=== PATIENT | female | born 1960 | race African-American/Black ===

== ENCOUNTER 2017-10-07 05:49 | Inpatient (IN) | payer MEDICAID ==
[~2017-10-07] VITALS: Ht 170.2 cm; Wt 68.9 kg
[2017-10-07] MEDS ORDERED: SODIUM CHLORIDE 0.9% 1000ML BAG (SEPSIS BOLUS) IV ONE (06:15)
[2017-10-07 08:22] LABS: BASOPHILS % 0.2 % (0.0-2.0); EOSINOPHILS % 2.6 % (0.0-5.0); HEMATOCRIT. 29.7 % (36.0-48.0); HEMOGLOBIN. 9.5 g/dL (12.0-16.0); LYMPHOCYTES % 11.5 % (20.0-50.0); MEAN CORPUSCULAR HEMOGLOBIN 27.3 pg (28.0-32.0); MEAN CORPUSCULAR VOLUME 85.1 fL (81.0-99.0); MEAN PLATELET VOLUME 9.7 fl (7.4-10.4); MONOCYTES % 7.8 % (2.0-8.0); NEUTROPHILS % 77.9 % (40.0-76.0); PLATELET 153 x1000/uL (130-400); RED BLOOD CELL COUNT 3.49 mill/uL (4.2-5.4); RED CELL DISTRIBUTION WIDTH 15.5 % (11.6-14.6)
[2017-10-07] MEDS ORDERED: PIPERACILLIN/TAZOBACTAM 3.375GM/50ML PREMIX IV ONE (09:15)
[2017-10-07] MEDS ORDERED: CEFTRIAXONE 1 G PREMIX 50 ML IV ONE (09:15)
[2017-10-07] MEDS ORDERED: VANCOMYCIN 1 G PREMIX 200 ML IV SCH (09:15)
[2017-10-07 09:25] LABS: CLARITY URINE CLEAR (CLEAR); COLOR URINE YELLOW (YELLOW); KETONES URINE NEGATIVE (NEGATIVE); LEUKOCYTE ESTERASE URINE NEGATIVE (NEGATIVE); NITRITE URINE NEGATIVE (NEGATIVE); OCCULT BLOOD URINE NEGATIVE (NEGATIVE); PH URINE 5.5 (4.5-8.0); PROTEIN URINE NEGATIVE (NEGATIVE); SPECIFIC GRAVITY URINE 1.015 (1.005-1.030)
[2017-10-07] MEDS ORDERED: PIPERACILLIN/TAZ 3.375G PREMIX 50 ML IV SCH ×3 (09:30→18:00)
[2017-10-07] MEDS ORDERED: LIDOCAINE HCL 1% 20ML VIAL (Pyxis) INJ ONE (09:47)
[2017-10-07 10:05] LABS: BG BASE EXCESS 2.8 mmol/L (-2.0-2.0); BG CARBOXYHEMOGLOBIN 0.3 % (0.5-1.5); BG DEOXYHEMOGLOBIN 2.9 % (0.0-5.0); BG FRACTION INSPIRED OXYGEN 30; BG HCO3 ACT 27.2 mmol/L (22.0-26.0); BG METHEMOGLOBIN 0.1 % (0.0-1.5); BG OXYGEN SATURATION 97.1 % (92.0-98.5); BG OXYHEMOGLOBIN 96.7 % (94.0-97.0); BG SAMPLE SITE RIGHT RADIAL; BG TIDAL VOLUME(mL) 450 mL; BG TOTAL HEMOGLOBIN 9.8 g/dL (12.0-18.0); BG VENT MODE VENT - A/C; BG VENT RATE 12 set
[2017-10-07 11:38] LABS: CHLORIDE 106 mEq/L (98-107)
[2017-10-07 11:39] LABS: INR 1.1; PROTHROMBIN TIME 11.1 sec (9.4-11.6)
[2017-10-07 12:00] VITALS: BP 110/72
[2017-10-07] MEDS: IPRATROPIUM/ALBUTEROL 0.5-3(2.5)MG/3ML NEB HHN SCH ×2 (12:41→20:48)
[2017-10-07] MEDS ORDERED: FAMO-135 GT (12:41)
[2017-10-07] MEDS ORDERED: DOCU-150 GT (12:41)
[2017-10-07] MEDS ORDERED: LISI-604 GT (12:41)
[2017-10-07] MEDS ORDERED: MULT9LIQ6 GT (12:41)
[2017-10-07] MEDS ORDERED: MAGN400T29 GT (12:41)
[2017-10-07] MEDS ORDERED: ACET-2853 GT (12:50)
[2017-10-07] MEDS ORDERED: MOM GT (12:50)
[2017-10-07] MEDS ORDERED: BISA10SU62 RC (12:50)
[2017-10-07 14:00] VITALS: BP 119/90
[2017-10-07 16:00] VITALS: BP 105/78
[2017-10-07] MEDS ORDERED: ENOXAPARIN 80MG/0.8ML SYR SUBCUT SCH (17:00)
[2017-10-07] MEDS: DEXTROSE 50% WATER 50ML SYRINGE IV PRN ×2 (17:36→22:27)
[2017-10-07] MEDS: BLOOD SUGAR DIAGNOSTIC STRIP TEST SCH ×2 (17:36→21:00)
[2017-10-07] MEDS: INSULIN LISPRO 100 UNITS/ML SUBCUT SCH ×2 (17:37→21:00)
[2017-10-07 18:00] VITALS: BP 113/77
[2017-10-07] MEDS ORDERED: VANCOMYCIN 1500MG in DEXTROSE 5% WATER 250ML IV NR (18:00)
[2017-10-07 20:00] VITALS: BP 127/82
[2017-10-07] MEDS: LISINOPRIL 20MG TABLET PO SCH (20:08)
[2017-10-07] MEDS: FAMOTIDINE 20MG TABLET PO SCH (20:08)
[2017-10-07] MEDS: ACETYLCYSTEINE 100MG/ML 10% VIAL 4ML INH SCH (20:48)
[2017-10-07 22:00] VITALS: BP 119/76
[2017-10-08] VITALS (12 sets, daily range): BP systolic 80–128; BP diastolic 25–88
[2017-10-08] MEDS: VANCOMYCIN 750 MG PREMIX 150 ML IV SCH ×3 (01:57→17:01)
[2017-10-08] MEDS: IPRATROPIUM/ALBUTEROL 0.5-3(2.5)MG/3ML NEB HHN SCH ×4 (02:19→20:00)
[2017-10-08 06:40] LABS: BASOPHILS % 0.3 % (0.0-2.0); EOSINOPHILS % 2.2 % (0.0-5.0); HEMATOCRIT. 32.7 % (36.0-48.0); HEMOGLOBIN. 10.6 g/dL (12.0-16.0); LYMPHOCYTES % 8.5 % (20.0-50.0); MEAN CORPUSCULAR HEMOGLOBIN 27.2 pg (28.0-32.0); MEAN CORPUSCULAR VOLUME 83.7 fL (81.0-99.0); MEAN PLATELET VOLUME 10.1 fl (7.4-10.4); MONOCYTES % 6.3 % (2.0-8.0); NEUTROPHILS % 82.7 % (40.0-76.0); PLATELET 206 x1000/uL (130-400); RED BLOOD CELL COUNT 3.91 mill/uL (4.2-5.4); RED CELL DISTRIBUTION WIDTH 15.8 % (11.6-14.6)
[2017-10-08 07:06] LABS: CHLORIDE 103 mEq/L (98-107)
[2017-10-08] MEDS: ACETYLCYSTEINE 100MG/ML 10% VIAL 4ML INH SCH ×2 (08:12→13:55)
[2017-10-08] MEDS: LISINOPRIL 20MG TABLET PO SCH (08:31)
[2017-10-08] MEDS: ENOXAPARIN 40MG/0.4ML SYR SUBCUT SCH (08:32)
[2017-10-08] MEDS: DILTIAZEM HCL 30MG TABLET PO SCH ×2 (08:32→12:32)
[2017-10-08] MEDS: DOCUSATE SODIUM SUGAR FREE 100MG/10ML UDC NG SCH (08:32)
[2017-10-08] MEDS: FAMOTIDINE 20MG TABLET PO SCH ×2 (09:00→20:26)
[2017-10-08] MEDS: PIPERACILLIN/TAZ 3.375G PREMIX 50 ML IV SCH ×3 (10:22→20:26)
[2017-10-08] MEDS ORDERED: MORPHINE SULFATE 4 MG/ML CPJ (NOT FOR IM USE) IV PRN (10:30)
[2017-10-08] MEDS: GUAIFENESIN 200MG/10ML SUGAR FREE UDC PO SCH ×3 (11:12→22:09)
[2017-10-08] MEDS: LORAZEPAM 2MG/ML CPJ IV PRN ×2 (11:12→14:46)
[2017-10-08 11:47] LABS: BG BASE EXCESS 4.9 mmol/L (-2.0-2.0); BG CARBOXYHEMOGLOBIN 0.3 % (0.5-1.5); BG DEOXYHEMOGLOBIN 1.8 % (0.0-5.0); BG FRACTION INSPIRED OXYGEN 30; BG HCO3 ACT 28.8 mmol/L (22.0-26.0); BG OXYGEN SATURATION 98.2 % (92.0-98.5); BG OXYHEMOGLOBIN 97.9 % (94.0-97.0); BG PH 7.475 (7.350-7.450); BG PO2 107.2 mmHg (75.0-100.0); BG SAMPLE SITE LEFT BRACHIAL; BG TIDAL VOLUME(mL) 450 mL; BG TOTAL HEMOGLOBIN 11.1 g/dL (12.0-18.0); BG VENT MODE VENT - A/C; BG VENT RATE 16 set
[2017-10-08] MEDS: INSULIN LISPRO 100 UNITS/ML SUBCUT SCH ×2 (12:00→17:01)
[2017-10-08] MEDS: IPRATROPIUM/ALBUTEROL 0.5-3(2.5)MG/3ML NEB HHN PRN ×2 (12:25→16:02)
[2017-10-08] MEDS: BLOOD SUGAR DIAGNOSTIC STRIP TEST SCH ×2 (12:32→17:01)
[2017-10-08] MEDS ORDERED: DILTIAZEM HCL 5MG/ML 5ML VIAL IV NR (17:00)
[2017-10-08] MEDS: DILTIAZEM HCL 125 MG in DEXT 5% WATER 100 ML IV SCH (20:26)
[2017-10-09] VITALS (12 sets, daily range): BP systolic 92–146; BP diastolic 45–87
[2017-10-09] MEDS: BLOOD SUGAR DIAGNOSTIC STRIP TEST SCH ×4 (00:19→17:04)
[2017-10-09] MEDS: INSULIN LISPRO 100 UNITS/ML SUBCUT SCH ×4 (00:24→17:21)
[2017-10-09] MEDS: IPRATROPIUM/ALBUTEROL 0.5-3(2.5)MG/3ML NEB HHN SCH ×4 (02:28→19:43)
[2017-10-09] MEDS: ACETYLCYSTEINE 100MG/ML 10% VIAL 4ML INH SCH ×3 (02:29→14:57)
[2017-10-09] MEDS: PIPERACILLIN/TAZ 3.375G PREMIX 50 ML IV SCH ×4 (02:34→21:28)
[2017-10-09] MEDS: VANCOMYCIN 750 MG PREMIX 150 ML IV SCH ×2 (02:34→10:51)
[2017-10-09] MEDS: LORAZEPAM 2MG/ML CPJ IV PRN (05:31)
[2017-10-09] MEDS: GUAIFENESIN 200MG/10ML SUGAR FREE UDC PO SCH ×4 (05:31→23:32)
[2017-10-09] MEDS: DILTIAZEM HCL 125 MG in DEXT 5% WATER 100 ML IV SCH (05:43)
[2017-10-09 08:24] LABS: BASOPHILS % 0.2 % (0.0-2.0); EOSINOPHILS % 1.4 % (0.0-5.0); HEMATOCRIT. 28.6 % (36.0-48.0); HEMOGLOBIN. 9.3 g/dL (12.0-16.0); LYMPHOCYTES % 7.7 % (20.0-50.0); MEAN CORPUSCULAR VOLUME 83.1 fL (81.0-99.0); MEAN PLATELET VOLUME 9.7 fl (7.4-10.4); MONOCYTES % 7.5 % (2.0-8.0); NEUTROPHILS % 83.2 % (40.0-76.0); PLATELET 211 x1000/uL (130-400); RED BLOOD CELL COUNT 3.44 mill/uL (4.2-5.4); RED CELL DISTRIBUTION WIDTH 15.3 % (11.6-14.6)
[2017-10-09] MEDS: ENOXAPARIN 40MG/0.4ML SYR SUBCUT SCH (08:38)
[2017-10-09] MEDS: DOCUSATE SODIUM SUGAR FREE 100MG/10ML UDC NG SCH (08:39)
[2017-10-09] MEDS: FAMOTIDINE 20MG TABLET PO SCH ×2 (08:39→23:33)
[2017-10-09] MEDS: LISINOPRIL 10MG TABLET PO SCH (08:43)
[2017-10-09 08:45] LABS: CHLORIDE 103 mEq/L (98-107)
[2017-10-09 14:16] LABS: OPIATES URINE SCREEN PRESUMTIVE POSITIVE (NEGATIVE)
[2017-10-09 14:17] LABS: *AMPHETAMINES SCREEN URINE NEGATIVE (NEGATIVE); *BARBITURATES SCREEN URINE NEGATIVE (NEGATIVE); *BENZODIAZEPINES SCREEN URINE NEGATIVE (NEGATIVE); *COCAINE SCREEN URINE NEGATIVE (NEGATIVE); CANNABINOID URINE SCREEN NEGATIVE (NEGATIVE); PHENCYCLIDINE URINE SCREEN NEGATIVE (NEGATIVE)
[2017-10-09 14:19] LABS: METHADONE URINE SCREEN NEGATIVE (NEGATIVE)
[2017-10-09 14:23] LABS: BG BASE EXCESS 4.1 mmol/L (-2.0-2.0); BG CARBOXYHEMOGLOBIN 0.3 % (0.5-1.5); BG FRACTION INSPIRED OXYGEN 30; BG HCO3 ACT 27.3 mmol/L (22.0-26.0); BG METHEMOGLOBIN 0.1 % (0.0-1.5); BG OXYHEMOGLOBIN 94.6 % (94.0-97.0); BG PCO2 35.7 mmHg (35.0-45.0); BG PH 7.502 (7.350-7.450); BG PO2 72.3 mmHg (75.0-100.0); BG SAMPLE SITE RIGHT BRACHIAL; BG TIDAL VOLUME(mL) 450 mL; BG TOTAL HEMOGLOBIN 10.4 g/dL (12.0-18.0); BG VENT MODE VENT - A/C; BG VENT RATE 14 set
[2017-10-09] MEDS ORDERED: ACETAMINOPHEN 650MG/20.3ML UDC GT PRN (16:45)
[2017-10-09] MEDS ORDERED: VANCOMYCIN 750 MG PREMIX 150 ML IV SCH (23:30)
[2017-10-10] VITALS (7 sets, daily range): BP systolic 100–138; BP diastolic 62–89
[2017-10-10] MEDS: BLOOD SUGAR DIAGNOSTIC STRIP TEST SCH ×5 (00:25→23:53)
[2017-10-10] MEDS: IPRATROPIUM/ALBUTEROL 0.5-3(2.5)MG/3ML NEB HHN SCH ×4 (02:28→20:18)
[2017-10-10] MEDS: PIPERACILLIN/TAZ 3.375G PREMIX 50 ML IV SCH ×3 (03:17→17:09)
[2017-10-10] MEDS: INSULIN LISPRO 100 UNITS/ML SUBCUT SCH ×5 (06:00→23:57)
[2017-10-10] MEDS: GUAIFENESIN 200MG/10ML SUGAR FREE UDC PO SCH ×4 (06:37→22:19)
[2017-10-10 07:38] LABS: BASOPHILS % 0.2 % (0.0-2.0); HEMATOCRIT. 27.9 % (36.0-48.0); HEMOGLOBIN. 9.2 g/dL (12.0-16.0); LYMPHOCYTES % 12.3 % (20.0-50.0); MEAN CORPUSCULAR HEMOGLOBIN 27.2 pg (28.0-32.0); MEAN CORPUSCULAR VOLUME 82.6 fL (81.0-99.0); MEAN PLATELET VOLUME 9.5 fl (7.4-10.4); MONOCYTES % 10.3 % (2.0-8.0); NEUTROPHILS % 73.2 % (40.0-76.0); PLATELET 193 x1000/uL (130-400); RED BLOOD CELL COUNT 3.37 mill/uL (4.2-5.4)
[2017-10-10 08:17] LABS: CHLORIDE 105 mEq/L (98-107)
[2017-10-10] MEDS: ACETYLCYSTEINE 100MG/ML 10% VIAL 4ML INH SCH ×2 (08:49→14:04)
[2017-10-10 08:58] LABS: BG BASE EXCESS 6.6 mmol/L (-2.0-2.0); BG DEOXYHEMOGLOBIN 2.2 % (0.0-5.0); BG FRACTION INSPIRED OXYGEN 30; BG HCO3 ACT 30.3 mmol/L (22.0-26.0); BG METHEMOGLOBIN 0.4 % (0.0-1.5); BG OXYGEN SATURATION 97.8 % (92.0-98.5); BG OXYHEMOGLOBIN 97.4 % (94.0-97.0); BG PCO2 39.8 mmHg (35.0-45.0); BG PO2 107.8 mmHg (75.0-100.0); BG SAMPLE SITE RIGHT BRACHIAL; BG TIDAL VOLUME(mL) 450 mL; BG TOTAL HEMOGLOBIN 9.2 g/dL (12.0-18.0); BG VENT MODE VENT - A/C; BG VENT RATE 14 set
[2017-10-10] MEDS: DOCUSATE SODIUM SUGAR FREE 100MG/10ML UDC NG SCH (09:00)
[2017-10-10] MEDS: ENOXAPARIN 40MG/0.4ML SYR SUBCUT SCH (09:43)
[2017-10-10] MEDS: FAMOTIDINE 20MG TABLET PO SCH ×2 (09:43→21:07)
[2017-10-10] MEDS: LISINOPRIL 10MG TABLET PO SCH (09:43)
[2017-10-10] MEDS: DILTIAZEM HCL 125 MG in DEXT 5% WATER 100 ML IV SCH (19:04)
[2017-10-10] MEDS: LEVOFLOXACIN 750MG PREMIX 150 ML IV SCH (21:09)
[2017-10-11] VITALS (17 sets, daily range): BP systolic 99–152; BP diastolic 45–93
[2017-10-11] MEDS: IPRATROPIUM/ALBUTEROL 0.5-3(2.5)MG/3ML NEB HHN SCH ×4 (01:40→20:48)
[2017-10-11] MEDS: BLOOD SUGAR DIAGNOSTIC STRIP TEST SCH ×3 (05:14→17:59)
[2017-10-11] MEDS: GUAIFENESIN 200MG/10ML SUGAR FREE UDC PO SCH ×2 (05:14→10:17)
[2017-10-11] MEDS: INSULIN LISPRO 100 UNITS/ML SUBCUT SCH ×3 (05:20→18:00)
[2017-10-11] MEDS: ACETYLCYSTEINE 100MG/ML 10% VIAL 4ML INH SCH ×2 (08:26→14:11)
[2017-10-11] MEDS: DOCUSATE SODIUM SUGAR FREE 100MG/10ML UDC NG SCH (09:00)
[2017-10-11] MEDS: FAMOTIDINE 20MG TABLET PO SCH ×2 (10:16→20:22)
[2017-10-11] MEDS: ENOXAPARIN 40MG/0.4ML SYR SUBCUT SCH (10:17)
[2017-10-11] MEDS: LISINOPRIL 10MG TABLET PO SCH (10:17)
[2017-10-11] MEDS: DILTIAZEM HCL 125 MG in DEXT 5% WATER 100 ML IV SCH (13:23)
[2017-10-11] MEDS: LEVOFLOXACIN 750MG PREMIX 150 ML IV SCH (20:22)
[2017-10-11] MEDS: DILTIAZEM HCL 60MG TABLET PO SCH (21:02)
[2017-10-12] VITALS (12 sets, daily range): BP systolic 105–163; BP diastolic 64–127
[2017-10-12] MEDS: BLOOD SUGAR DIAGNOSTIC STRIP TEST SCH ×4 (00:26→18:08)
[2017-10-12] MEDS: IPRATROPIUM/ALBUTEROL 0.5-3(2.5)MG/3ML NEB HHN SCH ×4 (01:22→20:49)
[2017-10-12] MEDS: DILTIAZEM HCL 60MG TABLET PO SCH ×3 (05:07→21:17)
[2017-10-12] MEDS: INSULIN LISPRO 100 UNITS/ML SUBCUT SCH ×4 (05:11→18:00)
[2017-10-12 07:18] LABS: BASOPHILS % 0.3 % (0.0-2.0); EOSINOPHILS % 3.2 % (0.0-5.0); HEMATOCRIT. 27.1 % (36.0-48.0); HEMOGLOBIN. 8.7 g/dL (12.0-16.0); LYMPHOCYTES % 9.7 % (20.0-50.0); MEAN CORPUSCULAR HEMOGLOBIN 26.6 pg (28.0-32.0); MEAN CORPUSCULAR VOLUME 82.5 fL (81.0-99.0); MEAN PLATELET VOLUME 9.2 fl (7.4-10.4); MONOCYTES % 5.7 % (2.0-8.0); NEUTROPHILS % 81.1 % (40.0-76.0); PLATELET 255 x1000/uL (130-400); RED BLOOD CELL COUNT 3.28 mill/uL (4.2-5.4); RED CELL DISTRIBUTION WIDTH 15.2 % (11.6-14.6)
[2017-10-12 07:22] LABS: CHLORIDE 106 mEq/L (98-107)
[2017-10-12] MEDS: ACETYLCYSTEINE 100MG/ML 10% VIAL 4ML INH SCH ×2 (08:11→13:57)
[2017-10-12] MEDS: LISINOPRIL 10MG TABLET PO SCH (09:00)
[2017-10-12] MEDS: FAMOTIDINE 20MG TABLET PO SCH ×2 (09:09→21:16)
[2017-10-12] MEDS: DOCUSATE SODIUM SUGAR FREE 100MG/10ML UDC NG SCH (09:09)
[2017-10-12] MEDS: ENOXAPARIN 40MG/0.4ML SYR SUBCUT SCH (09:11)
[2017-10-12] MEDS: LEVOFLOXACIN 750MG PREMIX 150 ML IV SCH (21:14)
[2017-10-13] VITALS (11 sets, daily range): BP systolic 108–152; BP diastolic 71–139
[2017-10-13] MEDS: LORAZEPAM 2MG/ML CPJ IV PRN (04:58)
[2017-10-13] MEDS: BLOOD SUGAR DIAGNOSTIC STRIP TEST SCH ×4 (05:03→18:24)
[2017-10-13] MEDS: INSULIN LISPRO 100 UNITS/ML SUBCUT SCH ×4 (05:16→18:00)
[2017-10-13] MEDS: DILTIAZEM HCL 60MG TABLET PO SCH ×2 (05:16→15:00)
[2017-10-13] MEDS: IPRATROPIUM/ALBUTEROL 0.5-3(2.5)MG/3ML NEB HHN SCH ×3 (08:44→20:30)
[2017-10-13] MEDS: LISINOPRIL 10MG TABLET PO SCH (09:00)
[2017-10-13] MEDS: FAMOTIDINE 20MG TABLET PO SCH (09:54)
[2017-10-13] MEDS: DOCUSATE SODIUM SUGAR FREE 100MG/10ML UDC NG SCH (09:55)
[2017-10-13] MEDS ORDERED: DILTIAZEM HCL 5MG/ML 5ML VIAL IV NR (10:00)
[2017-10-13] MEDS: ENOXAPARIN 40MG/0.4ML SYR SUBCUT SCH (10:03)
== END 2017-10-13 22:10 | DRG 720 ==
LOC: ER 05:49 → ENRESERV 08:15 → CANRESERV 08:15 → 5EST 09:15 → EDBEDREQ 09:17 → ENRESERV 10:05 → 5EST 10-08 19:41
PROVIDERS: ADMIT Internal Medicine; ATTEND Internal Medicine
PROC: 5A1955Z Respiratory Ventilation, Greater than 96 Consecutive Hours (ICD-10-PCS; principal; 2017-10-07)
PROC: 05H933Z Insertion of Infusion Device into Right Brachial Vein, Percutaneous Approach (ICD-10-PCS; 2017-10-07)
PROC: B54MZZA Ultrasonography of Right Upper Extremity Veins, Guidance (ICD-10-PCS; 2017-10-07)
DX: A41.9 Sepsis, unspecified organism (principal); J96.21 Acute and chronic respiratory failure with hypoxia; R65.21 Severe sepsis with septic shock; E43 Unspecified severe protein-calorie malnutrition; J15.1 Pneumonia due to Pseudomonas; Z99.11 Dependence on respirator [ventilator] status; D68.59 Other primary thrombophilia; D63.8 Anemia in other chronic diseases classified elsewhere; E11.9 Type 2 diabetes mellitus without complications; L89.150 Pressure ulcer of sacral region, unstageable; I11.9 Hypertensive heart disease without heart failure; F41.9 Anxiety disorder, unspecified; E78.5 Hyperlipidemia, unspecified; I48.2 Chronic atrial fibrillation; K21.9 Gastro-esophageal reflux disease without esophagitis; Z86.718 Personal history of other venous thrombosis and embolism; Z86.73 Personal history of transient ischemic attack (TIA), and cerebral infarction without residual deficits; Z87.891 Personal history of nicotine dependence; Z93.1 Gastrostomy status; Z68.23 Body mass index [BMI] 23.0-23.9, adult; Z88.2 Allergy status to sulfonamides; Z79.82 Long term (current) use of aspirin; Z93.0 Tracheostomy status; Z79.899 Other long term (current) drug therapy
CPT/HCPCS: 36415; 36569; 36600; 71045; 76937; 80048; 80053; 80202; 80305; 81003; 82375; 82805; 82962; 83605; 84134; 84145; 84484; 85025; 85610; 87040; 87070; 87077; 87086; 87186; 93005; 93306; 93970; 94003; 94640; 94664; 96374; 99291; A6261; C1725; J0696; J1650; J1815; J1956; J2060; J2270; J2543; J3370; J3490; J7030; J7040; J7050; J7060; J7070; J7608; J7620; A4315

== ENCOUNTER 2021-03-18 08:05 | Inpatient (IN) | payer MEDICAID ==
[~2021-03-18] VITALS: Ht 165.1 cm; Wt 92.1 kg
[~2021-03-18 08:05] MED LIST: ACET650T37 GT; BISA10SU62 RC; DOCU-150 GT; FAMO-135 GT; LISI20TA31 GT; MAGN400T29 GT; MOM GT; MULT9LIQ6 GT
[2021-03-18] MEDS ORDERED: ACETAMINOPHEN 325MG TABLET PO STA (08:45)
[2021-03-18] MEDS ORDERED: PIPERACILLIN/TAZ 3.375G PREMIX 50 ML IV ONE (08:45)
[2021-03-18 09:19] LABS: BASOPHILS % 0.4 % (0.0-2.0); EOSINOPHILS % 0.9 % (0.0-5.0); HEMATOCRIT. 47.3 % (36.0-48.0); HEMOGLOBIN. 15.5 g/dL (12.0-16.0); LYMPHOCYTES % 20.2 % (20.0-50.0); MEAN CORPUSCULAR HEMOGLOBIN 28.4 pg (28.0-32.0); MEAN CORPUSCULAR VOLUME 86.5 fL (81.0-99.0); MEAN PLATELET VOLUME 10.8 fl (7.4-10.4); MONOCYTES % 7.7 % (2.0-8.0); NEUTROPHILS % 70.8 % (40.0-76.0); PLATELET 132 x1000/uL (130-400); RED BLOOD CELL COUNT 5.48 mill/uL (4.2-5.4); RED CELL DISTRIBUTION WIDTH 16.1 % (11.6-14.6)
[2021-03-18 09:30] LABS: CHLORIDE 110 mEq/L (98-107)
[2021-03-18] MEDS ORDERED: LACTATED RINGERS 2,000 ML IV STA (09:40)
[2021-03-18] MEDS ORDERED: VANCOMYCIN 1 G PREMIX 200 ML IV SCH (09:45)
[2021-03-18] MEDS ORDERED: DIGOXIN 500MCG/2ML AMP IV ONE (11:45)
[2021-03-18] MEDS ORDERED: DILTIAZEM HCL 5MG/ML 5ML VIAL IV ONE (11:45)
[2021-03-18 12:57] LABS: CLARITY URINE CLEAR (CLEAR); COLOR URINE YELLOW (YELLOW); KETONES URINE NEGATIVE (NEGATIVE); LEUKOCYTE ESTERASE URINE 1+ (NEGATIVE); NITRITE URINE NEGATIVE (NEGATIVE); OCCULT BLOOD URINE TRACE (NEGATIVE); PH URINE 5.5 (4.5-8.0); PROTEIN URINE 2+ (NEGATIVE)
[2021-03-18] MEDS ORDERED: DEXTROSE 50% WATER 50ML SYRINGE IV PRN (13:15)
[2021-03-18] MEDS: INSULIN LISPRO 100 UNITS/ML SUBCUT SCH ×3 (13:20→22:00)
[2021-03-18] MEDS ORDERED: NOREPINEPHRINE 32 MG in DEXT 5% WATER 218 ML IV STA (13:26)
[2021-03-18] MEDS: SODIUM CHLORIDE 0.45% 1,000 ML IV SCH (13:33)
[2021-03-18] MEDS: PIPERACILLIN/TAZ 3.375G PREMIX 50 ML IV SCH ×2 (14:46→22:47)
[2021-03-18] MEDS ORDERED: IOHEXOL-350 100 ML BOTTLE ONE (15:01)
[2021-03-18] MEDS ORDERED: MORPHINE SULFATE 2 MG/ML CPJ (NOT FOR IM USE) IV PRN (15:15)
[2021-03-18] MEDS: DILTIAZEM HCL 30MG TABLET PO SCH ×2 (15:15→22:00)
[2021-03-18 15:39] LABS: INR 1.1; PROTHROMBIN TIME 12.2 sec (9.6-11.0)
[2021-03-18] MEDS ORDERED: NALOXONE HCL 0.4MG/ML VIAL IV PRN (15:45)
[2021-03-18] MEDS: BLOOD SUGAR DIAGNOSTIC STRIP TEST SCH ×2 (17:06→22:00)
[2021-03-18] MEDS: IPRATROPIUM BROMIDE (0.02%) 0.5MG/2.5ML NEB HHN SCH (20:35)
[2021-03-19] MEDS: SODIUM CHLORIDE 0.45% 1,000 ML IV SCH ×2 (04:03→18:53)
[2021-03-19] MEDS: DILTIAZEM HCL 5MG/ML 5ML VIAL IV PRN ×2 (04:30→22:30)
[2021-03-19] MEDS: DILTIAZEM HCL 30MG TABLET PO SCH ×3 (06:00→21:47)
[2021-03-19] MEDS: PIPERACILLIN/TAZ 3.375G PREMIX 50 ML IV SCH ×2 (06:31→14:32)
[2021-03-19] MEDS: BLOOD SUGAR DIAGNOSTIC STRIP TEST SCH ×4 (06:32→20:01)
[2021-03-19] MEDS: INSULIN LISPRO 100 UNITS/ML SUBCUT SCH ×4 (07:00→20:01)
[2021-03-19 07:02] LABS: CHLORIDE 109 mEq/L (98-107)
[2021-03-19 07:21] LABS: BASOPHILS % 0.5 % (0.0-2.0); HEMATOCRIT. 47.5 % (36.0-48.0); HEMOGLOBIN. 14.9 g/dL (12.0-16.0); LYMPHOCYTES % 15.2 % (20.0-50.0); MEAN CORPUSCULAR HEMOGLOBIN 27.4 pg (28.0-32.0); MEAN CORPUSCULAR VOLUME 87.5 fL (81.0-99.0); MEAN PLATELET VOLUME 10.7 fl (7.4-10.4); NEUTROPHILS % 73.3 % (40.0-76.0); PLATELET 117 x1000/uL (130-400); RED BLOOD CELL COUNT 5.42 mill/uL (4.2-5.4); RED CELL DISTRIBUTION WIDTH 15.9 % (11.6-14.6)
[2021-03-19] MEDS: IPRATROPIUM BROMIDE (0.02%) 0.5MG/2.5ML NEB HHN SCH ×3 (08:35→20:17)
[2021-03-19 09:43] LABS: BG BASE EXCESS 0.2 mmol/L (-2.0-2.0); BG CARBOXYHEMOGLOBIN 0.5 % (0.5-1.5); BG DEOXYHEMOGLOBIN 0.5 % (0.0-5.0); BG FRACTION INSPIRED OXYGEN 100; BG HCO3 ACT 23.4 mmol/L (22.0-26.0); BG METHEMOGLOBIN 0.3 % (0.0-1.5); BG OXYGEN SATURATION 99.5 % (92.0-98.5); BG OXYHEMOGLOBIN 98.7 % (94.0-97.0); BG PH 7.455 (7.350-7.450); BG PO2 221.4 mmHg (75.0-100.0); BG SAMPLE SITE LEFT BRACHIAL; BG TOTAL HEMOGLOBIN 15.5 g/dL (12.0-18.0); BG VENT MODE VENT - AC
[2021-03-19] MEDS: VANCOMYCIN 1 G PREMIX 200 ML IV SCH (14:32)
[2021-03-19 16:00] VITALS: BP 124/91
[2021-03-19 16:12] VITALS: BP 124/91
[2021-03-19 18:00] VITALS: BP 91/50
[2021-03-19] MEDS ORDERED: METOPROLOL TARTRATE 5MG/5ML VIAL IV PRN (18:30)
[2021-03-19] MEDS ORDERED: MORPHINE SULFATE 2 MG/ML CPJ (NOT FOR IM USE) IV PRN (18:45)
[2021-03-19] MEDS: LORAZEPAM 2MG/ML CPJ IV PRN (19:47)
[2021-03-19 20:00] VITALS: BP 129/75
[2021-03-19 21:03] LABS: BG CARBOXYHEMOGLOBIN 0.5 % (0.5-1.5); BG DEOXYHEMOGLOBIN 0.9 % (0.0-5.0); BG FRACTION INSPIRED OXYGEN 70; BG HCO3 ACT 23.8 mmol/L (22.0-26.0); BG METHEMOGLOBIN 0.5 % (0.0-1.5); BG OXYGEN SATURATION 99.1 % (92.0-98.5); BG OXYHEMOGLOBIN 98.1 % (94.0-97.0); BG PCO2 36.4 mmHg (35.0-45.0); BG PH 7.434 (7.350-7.450); BG PO2 161.6 mmHg (75.0-100.0); BG SAMPLE SITE RIGHT RADIAL; BG TOTAL HEMOGLOBIN 15.3 g/dL (12.0-18.0); BG TOTAL RESPIRATORY RATE 24 b/min; BG VENT MODE VENT - AC
[2021-03-19] MEDS: PIPERACILLIN/TAZOBACTAM 3.375G in DEXT 5% WATER 50ML IV SCH (21:44)
[2021-03-19 22:00] VITALS: BP 118/90
[2021-03-20] VITALS (12 sets, daily range): BP systolic 99–128; BP diastolic 44–96
[2021-03-20] MEDS: IPRATROPIUM BROMIDE (0.02%) 0.5MG/2.5ML NEB HHN SCH ×4 (00:37→20:50)
[2021-03-20] MEDS: VANCOMYCIN 1 G PREMIX 200 ML IV SCH ×2 (02:59→13:40)
[2021-03-20] MEDS: PIPERACILLIN/TAZOBACTAM 3.375G in DEXT 5% WATER 50ML IV SCH ×3 (05:34→22:05)
[2021-03-20] MEDS: DILTIAZEM HCL 30MG TABLET PO SCH ×2 (05:35→14:38)
[2021-03-20 05:50] LABS: CHLORIDE 108 mEq/L (98-107)
[2021-03-20 06:30] LABS: BASOPHILS % 0.4 % (0.0-2.0); EOSINOPHILS % 0.4 % (0.0-5.0); HEMATOCRIT. 45.7 % (36.0-48.0); HEMOGLOBIN. 14.7 g/dL (12.0-16.0); LYMPHOCYTES % 12.8 % (20.0-50.0); MEAN CORPUSCULAR HEMOGLOBIN 28.3 pg (28.0-32.0); MEAN CORPUSCULAR VOLUME 88.1 fL (81.0-99.0); MONOCYTES % 7.5 % (2.0-8.0); NEUTROPHILS % 78.9 % (40.0-76.0); PLATELET 119 x1000/uL (130-400); RED BLOOD CELL COUNT 5.19 mill/uL (4.2-5.4); RED CELL DISTRIBUTION WIDTH 15.5 % (11.6-14.6)
[2021-03-20] MEDS: SODIUM CHLORIDE 0.45% 1,000 ML IV SCH ×2 (06:42→19:33)
[2021-03-20] MEDS: BLOOD SUGAR DIAGNOSTIC STRIP TEST SCH ×4 (07:30→21:00)
[2021-03-20] MEDS: INSULIN LISPRO 100 UNITS/ML SUBCUT SCH ×4 (09:01→21:00)
[2021-03-20] MEDS ORDERED: DIGOXIN 500MCG/2ML AMP IV NR (15:15)
[2021-03-20] MEDS: DILTIAZEM HCL 5MG/ML 5ML VIAL IV PRN (19:56)
[2021-03-20] MEDS: DILTIAZEM HCL 60MG TABLET PO SCH (22:08)
[2021-03-21] VITALS (12 sets, daily range): BP systolic 105–126; BP diastolic 68–92
[2021-03-21] MEDS: VANCOMYCIN 1 G PREMIX 200 ML IV SCH ×2 (01:23→21:57)
[2021-03-21] MEDS: PIPERACILLIN/TAZOBACTAM 3.375G in DEXT 5% WATER 50ML IV SCH ×3 (04:41→21:57)
[2021-03-21] MEDS: DILTIAZEM HCL 60MG TABLET PO SCH ×3 (04:44→21:57)
[2021-03-21 05:20] LABS: CHLORIDE 109 mEq/L (98-107)
[2021-03-21] MEDS: SODIUM CHLORIDE 0.45% 1,000 ML IV SCH (08:14)
[2021-03-21] MEDS: BLOOD SUGAR DIAGNOSTIC STRIP TEST SCH ×4 (08:22→21:58)
[2021-03-21] MEDS: INSULIN LISPRO 100 UNITS/ML SUBCUT SCH ×4 (08:27→22:09)
[2021-03-21] MEDS: IPRATROPIUM BROMIDE (0.02%) 0.5MG/2.5ML NEB HHN SCH ×3 (08:38→20:45)
[2021-03-21] MEDS: LORAZEPAM 2MG/ML CPJ IV PRN (10:35)
[2021-03-21] MEDS: ENOXAPARIN 30MG/0.3ML SYR SUBCUT SCH (18:24)
[2021-03-22] VITALS (12 sets, daily range): BP systolic 108–134; BP diastolic 57–95
[2021-03-22] MEDS: IPRATROPIUM BROMIDE (0.02%) 0.5MG/2.5ML NEB HHN SCH ×3 (02:09→20:37)
[2021-03-22] MEDS: SODIUM CHLORIDE 0.45% 1,000 ML IV SCH ×2 (02:49→13:22)
[2021-03-22] MEDS: ENOXAPARIN 30MG/0.3ML SYR SUBCUT SCH ×2 (06:17→18:16)
[2021-03-22] MEDS: DILTIAZEM HCL 60MG TABLET PO SCH ×3 (06:18→21:33)
[2021-03-22] MEDS: PIPERACILLIN/TAZOBACTAM 3.375G in DEXT 5% WATER 50ML IV SCH ×3 (06:18→21:33)
[2021-03-22] MEDS: BLOOD SUGAR DIAGNOSTIC STRIP TEST SCH ×4 (08:28→20:58)
[2021-03-22] MEDS: INSULIN LISPRO 100 UNITS/ML SUBCUT SCH ×4 (08:36→20:58)
[2021-03-22] MEDS: VANCOMYCIN 1 G PREMIX 200 ML IV SCH (16:35)
[2021-03-22] MEDS: GUAIFENESIN 200MG/10ML SUGAR FREE UDC PO SCH ×2 (18:16→23:16)
[2021-03-23] VITALS (12 sets, daily range): BP systolic 112–150; BP diastolic 85–109
[2021-03-23] MEDS: IPRATROPIUM BROMIDE (0.02%) 0.5MG/2.5ML NEB HHN SCH ×4 (01:33→20:29)
[2021-03-23] MEDS: ACETYLCYSTEINE 100MG/ML 10% VIAL 4ML INH SCH ×3 (01:34→11:35)
[2021-03-23] MEDS: SODIUM CHLORIDE 0.45% 1,000 ML IV SCH ×3 (04:42→20:12)
[2021-03-23] MEDS: PIPERACILLIN/TAZOBACTAM 3.375G in DEXT 5% WATER 50ML IV SCH ×2 (05:50→14:31)
[2021-03-23] MEDS: ENOXAPARIN 30MG/0.3ML SYR SUBCUT SCH ×2 (05:50→17:19)
[2021-03-23] MEDS: DILTIAZEM HCL 60MG TABLET PO SCH ×3 (05:51→22:40)
[2021-03-23 06:25] LABS: CHLORIDE 112 mEq/L (98-107)
[2021-03-23] MEDS: BLOOD SUGAR DIAGNOSTIC STRIP TEST SCH ×4 (07:30→20:10)
[2021-03-23] MEDS: VANCOMYCIN 1 G PREMIX 200 ML IV SCH (08:54)
[2021-03-23] MEDS: GUAIFENESIN 200MG/10ML SUGAR FREE UDC PO SCH ×4 (08:55→22:40)
[2021-03-23] MEDS: INSULIN LISPRO 100 UNITS/ML SUBCUT SCH ×4 (09:45→20:10)
[2021-03-24] VITALS (11 sets, daily range): BP systolic 109–138; BP diastolic 81–93
[2021-03-24] MEDS: IPRATROPIUM BROMIDE (0.02%) 0.5MG/2.5ML NEB HHN SCH ×3 (01:18→14:04)
[2021-03-24] MEDS: ACETYLCYSTEINE 100MG/ML 10% VIAL 4ML INH SCH ×3 (01:18→14:04)
[2021-03-24] MEDS: VANCOMYCIN 1 G PREMIX 200 ML IV SCH (03:33)
[2021-03-24] MEDS: GUAIFENESIN 200MG/10ML SUGAR FREE UDC PO SCH ×3 (05:52→17:04)
[2021-03-24] MEDS: ENOXAPARIN 30MG/0.3ML SYR SUBCUT SCH ×2 (05:53→17:17)
[2021-03-24] MEDS: DILTIAZEM HCL 60MG TABLET PO SCH ×2 (05:53→14:44)
[2021-03-24] MEDS: BLOOD SUGAR DIAGNOSTIC STRIP TEST SCH ×3 (07:46→17:11)
[2021-03-24] MEDS: INSULIN LISPRO 100 UNITS/ML SUBCUT SCH ×3 (08:15→17:18)
== END 2021-03-24 19:25 | DRG 720 ==
LOC: ER 08:05 → MICUSO 11:49 → 5EST 03-19 16:14
PROVIDERS: ADMIT Internal Medicine; ATTEND Internal Medicine
PROC: 5A1955Z Respiratory Ventilation, Greater than 96 Consecutive Hours (ICD-10-PCS; principal; 2021-03-18)
PROC: 02HV33Z Insertion of Infusion Device into Superior Vena Cava, Percutaneous Approach (ICD-10-PCS; 2021-03-19)
PROC: B548ZZA Ultrasonography of Superior Vena Cava, Guidance (ICD-10-PCS; 2021-03-19)
DX: A41.9 Sepsis, unspecified organism (principal); J96.21 Acute and chronic respiratory failure with hypoxia; E43 Unspecified severe protein-calorie malnutrition; J18.9 Pneumonia, unspecified organism; G93.40 Encephalopathy, unspecified; I82.412 Acute embolism and thrombosis of left femoral vein; I48.11 Longstanding persistent atrial fibrillation; Z93.0 Tracheostomy status; Z99.11 Dependence on respirator [ventilator] status; I11.9 Hypertensive heart disease without heart failure; E78.5 Hyperlipidemia, unspecified; E87.5 Hyperkalemia; K21.9 Gastro-esophageal reflux disease without esophagitis; N63.20 Unspecified lump in the left breast, unspecified quadrant; M19.90 Unspecified osteoarthritis, unspecified site; I82.432 Acute embolism and thrombosis of left popliteal vein; E11.9 Type 2 diabetes mellitus without complications; R13.10 Dysphagia, unspecified; Z20.822 Contact with and (suspected) exposure to COVID-19; Z86.711 Personal history of pulmonary embolism; Z86.73 Personal history of transient ischemic attack (TIA), and cerebral infarction without residual deficits; Z93.1 Gastrostomy status; Z88.2 Allergy status to sulfonamides; Z79.899 Other long term (current) drug therapy; Z68.33 Body mass index [BMI] 33.0-33.9, adult
CPT/HCPCS: 36415; 36600; 71045; 71275; 76937; 80048; 80076; 80202; 81003; 82375; 82805; 82962; 83605; 84145; 84484; 85025; 87070; 87077; 87102; 87186; 87426; 93005; 93306; 93970; 94002; 94003; 94640; 99291; C1725; C9803; J1160; J1650; J1815; J2060; J2270; J2543; J3370; J3490; J7060; J7608; Q9967; U0003; U0005